=== PATIENT | female | born 1980 | race Caucasian/White ===

== ENCOUNTER 2016-12-22 16:25 | Emergency (ER) | payer OTHER ==
[~2016-12-22 16:25] MED LIST: *DENIES; ADVAIR INH; ALBUTER
== END 2016-12-22 19:12 | disposition home or self-care (01) ==
LOC: ER 16:25
DX: J20.9 Acute bronchitis, unspecified (principal); J45.909 Unspecified asthma, uncomplicated; F17.200 Nicotine dependence, unspecified, uncomplicated
CPT/HCPCS: 71010; 93005; 94640; 96372; 99284; A9270-GY